=== PATIENT | female | born 1980 | race Caucasian/White ===

== ENCOUNTER 2016-11-10 09:15 | Emergency (ER) | payer OTHER ==
[~2016-11-10] VITALS: Ht 172.7 cm; Wt 103.6 kg
[~2016-11-10 09:15] MED LIST: ASPIR 8181 M1 PO; AZITHROMYCIN250 MG1 PO; PRENATAL GUMMI1 EACH PO; PRILOSEC20 MG PO; PROCARDIA XL60 MG PO
[2016-11-10 10:04] LABS: HEMATOCRIT 35.8 % (36.0-46.0); MCHC 32.1 G/DL (30.0-36.0); MCV 80.8 FL (83-99); MEAN PLAT.VOLUME 10.2 uM^3 (9.5-12.4); PLATELET COUNT 138 K/uL (156-360); RBC DIS.WIDTH-CV 14.8 % (11.8-14.6); RBC DIS.WIDTH-SD 43.5 % (39-53); RED BLOOD COUNT 4.43 M/uL (3.80-5.20); WHITE BLOOD COUNT 10.2 K/uL (4.1-10.2)
[2016-11-10 10:15] LABS: CHLORIDE 109 mEq/L (99-109); POTASSIUM 3.8 mEq/L (3.7-5.4); SODIUM 139 mEq/L (136-147)
[2016-11-10 10:17] LABS: GLUCOSE 102 mg/dL (70-99)
[2016-11-10 10:18] LABS: ANION GAP 13 MEQ/L (2-14)
[2016-11-10 10:19] LABS: TOTAL BILIRUBIN 0.6 mg/dL (0.0-1.0)
[2016-11-10 10:21] LABS: ALKALINE PHOSPHATASE 85 IU/L (3-129); GFR ESTIMATE (CALCULATED) > 59 mL/min/
[2016-11-10 10:22] LABS: UREA NITROGEN (BUN) 7 mg/dL (9-23)
[2016-11-10 10:31] LABS: QUANTITATIVE HCG < 4.0 MIU/ML
[2016-11-10 11:02] LABS: ADD MIUA? YES; BILIRUBIN SMALL; BLOOD NEGATIVE; GLUCOSE (STRIP) NEGATIVE; KETONES 80; LEUKOCYTES TRACE; NITRITE NEGATIVE; PROTEIN (STRIP) 100
[2016-11-10 11:03] LABS: COLOR DK YELLOW ((YELLOW))
[2016-11-10 11:09] LABS: BACTERIA RARE /HPF; CALCIUM OXALATE CRYSTALS 1+ /HPF; EPITHELIAL CELLS 3+ /HPF; HYALINE CASTS 0-5 /LPF; MUCUS 2+ /LPF; RED BLOOD CELLS 0-5 /HPF (0-5); UCUL ADDED? NO; WHITE BLOOD CELLS 0-5 /HPF (0-5)
[2016-11-10] MEDS ORDERED: ZOFRAN ODT4 MG PO (14:16)
[2016-11-10] MEDS ORDERED: PHENERGAN25 MG PR (14:16)
[2016-11-10 14:57] VITALS: BP 127/81
== END 2016-11-10 14:59 | disposition home or self-care (01) ==
LOC: EME 09:15
DX: B34.9 Viral infection, unspecified (principal); R10.12 Left upper quadrant pain; Z98.84 Bariatric surgery status
CPT/HCPCS: 74020; 80053; 81003; 84702; 85027; 99281; 99285; J1885; J2405; J2765; J7030